=== PATIENT | female | born 1970 | race Caucasian/White ===

== ENCOUNTER 2017-12-06 02:25 | Emergency (ER) | payer OTHER ==
[2017-12-06 02:31] VITALS: RESP 18
[2017-12-06] MEDS ORDERED: ACETAMINOPHEN TAB 500 MG TAB PO STA (02:48)
[2017-12-06] MEDS ORDERED: DIPH,PERTUS(ACELL)TETVAC-LF 0.5 ML VIAL IM ONE (02:48)
[2017-12-06] MEDS ORDERED: LIDOCAINE 1% INJ 10MG/ML (20 ML MDV) SQ ONE (02:48)
--- NOTE | 2017-12-06 02:53 | ED ---
Wound/Laceration HPI - General Source: patient Mode of arrival: ambulatory Limitations: no limitations <Deidre Park - Last Filed: 12/06/17 03:59> <Susan Brennan - Last Filed: 12/06/17 05:11> - General Chief Complaint: Wound/Laceration Stated Complaint: hand lac Time Seen by Provider: 12/06/17 02:41 - History of Present Illness Initial Comments: 47-year-old female patient presents to the emergency department today for evaluation of laceration to the right hand. Patient states that she was at work , going to [place] when she slipped and cut her hand with a hand box coverer. Patient was able to get the bleeding under control. This occurred around 1 AM. She is unsure when her last tetanus vaccine was given. She denies any numbness or tingling to her hand or fingers. Denies any difficulty with range of motion. Denies any other injuries. Patient denies any headache, neck pain, back pain, chest pain, shortness of breath, dizziness, weakness, abdominal pain, nausea, vomiting, or difficulties with bowel movements or urination. (Deidre Park) - Related Data Allergies Allergy/AdvReac Type Severity Reaction Status Date / Time No Known Allergies Allergy Verified 12/06/17 02:31 Review of Systems ROS Other: All systems not noted in ROS Statement are negative. <Deidre Park - Last Filed: 12/06/17 03:59> ROS Other: All systems not noted in ROS Statement are negative. <Susan Brennan - Last Filed: 12/06/17 05:11> ROS Statement: Those systems with pertinent positive or pertinent negative responses have been documented in the HPI. Past Medical History Past Medical History: No Reported History History of Any Multi-Drug Resistant Organisms: None Reported Past Surgical History: No Surgical Hx Reported Past Psychological History: No Psychological Hx Reported Smoking Status: Current every day smoker Past Alcohol Use History: None Reported Past Drug Use History: None Reported <Deidre Park - Last Filed: 12/06/17 03:59> General Exam Limitations: no limitations General appearance: alert, in no apparent distress, other (Physical well- developed, well-nourished adult female patient in no acute distress. Vital signs upon presentation are temperature 97.7F, pulse 92, respirations 18, blood pressure 112/58, pulse ox 99% on room air.) Eye exam: Present: normal appearance, PERRL, EOMI. Absent: scleral icterus, conjunctival injection, periorbital swelling ENT exam: Present: normal exam, normal oropharynx, mucous membranes moist Respiratory exam: Present: normal lung sounds bilaterally. Absent: respiratory distress, wheezes, rales, rhonchi, stridor Cardiovascular Exam: Present: regular rate, normal rhythm, normal heart sounds. Absent: systolic murmur, diastolic murmur, rubs, gallop, clicks Extremities exam: Present: full ROM, normal capillary refill, other (Patient has a 4 cm laceration noted to the webbing between thumb and forefinger. Bleeding controlled. Full range of motion with no pain or limitation. Otherwise skin pink, warm, and dry. Cap refill less than three seconds. Radial pulse 2+ and equal bilaterally. ). Absent: normal inspection, tenderness, pedal edema, joint swelling, calf tenderness Neurological exam: Present: alert, oriented X3, CN II-XII intact Psychiatric exam: Present: normal affect, normal mood Skin exam: Present: warm, dry, intact, normal color. Absent: rash <Deidre Park M - Last Filed: 12/06/17 03:59> Vital Signs 12/06/17 12/06/17 02:29 04:00 Temperature 97.7 F 98.4 F Pulse Rate 92 93 Respiratory 18 18 Rate Blood Pressure 112/58 126/77 O2 Sat by Pulse 99 98 Oximetry Procedures - Laceration Laceration #1 Consent Obtained: verbal consent Indication: laceration Site: hand Size (cm): 4 Description: linear Depth: simple, single layer Anesthetic Used: lidocaine 1% Anesthesia Technique: local infiltration Amount (mls): 7 Pre-repair: irrigated extensively Type of Sutures: nylon Size of Sutures: 5-0 Number of Sutures: 7 Technique: simple, interrupted Patient Tolerated Procedure: well, no complications <Deidre Park - Last Filed: 12/06/17 03:59> Medical Decision Making <Deidre Park - Last Filed: 12/06/17 03:59> <Susan Brennan - Last Filed: 12/06/17 05:11> - Medical Decision Making 47 year-old female patient presented to the emergency department today for evaluation of laceration to the right hand. Physical examination did reveal a 4 cm laceration to the webbing between the thumb and index finger on the right hand. Patient had full range of motion to all fingers. Good strength against resistance. Bleeding under control. Did repair her laceration as documented under procedure note. Patient be discharged home to follow-up with [facility] in 1-2 days. She is educated regarding wound care and signs or symptoms of infection. She is instructed to return in 7 days for suture removal. Return parameters discussed in detail. She verbalizes understanding and agrees with this plan. (Deidre Park) I was available for consultation in the emergency department. The history and physical exam were done by the midlevel provider. I was consulted for this patient's care. I reviewed the case with the midlevel provider and based on their presentation of the patient, I agree with the assessment, medical decision making and plan of care as documented. (Susan Brennan) Disposition Is patient prescribed a controlled substance at d/c from ED?: No Time of Disposition: 03:53 <Deidre Park - Last Filed: 12/06/17 03:59> <Susan Brennan - Last Filed: 12/06/17 05:11> Clinical Impression: Laceration of right hand Disposition: HOME SELF-CARE Condition: Good Instructions: Care For Your Stitches (ED), Laceration (ED) Additional Instructions: Keep wound clean and dry. Wash twice daily with warm water and antibacterial soap. Keep covered while at work. Monitor for signs or symptoms of infection including but not limited to redness, swelling, drainage of pus, fever, or chills. Return for removal of stitches in 7 days. Return here immediately for any other new, worsening, or concerning symptoms. Referrals: Nonstaff,Physician [Primary Care Provider] - 1-2 days
[2017-12-06 04:01] VITALS: BP 126/77; PULSE 93; TEMP 98.4
== END 2017-12-06 04:01 | disposition home or self-care (01) ==
LOC: EC 02:25
DX: S61.411A Laceration without foreign body of right hand, initial encounter (principal); F17.200 Nicotine dependence, unspecified, uncomplicated; Z23 Encounter for immunization; W26.8XXA Contact with other sharp object(s), not elsewhere classified, initial encounter
CPT/HCPCS: 90715; 99282; 12002; 90471; J2001

== ENCOUNTER 2018-05-15 19:50 | Emergency (ER) | payer BC ==
[2018-05-15] MEDS ORDERED: DIPH,PERTUS(ACELL)TETVAC-LF 0.5 ML VIAL IM ONE (19:58)
[2018-05-15] MEDS ORDERED: LIDOCAINE 1% INJ 10MG/ML (20 ML MDV) SQ STA (19:58)
[2018-05-15 19:59] VITALS: RESP 20
--- NOTE | 2018-05-15 20:16 | XR ---
EXAMINATION TYPE: XR forearm LT DATE OF EXAM: 05/15/2018 COMPARISON: NONE HISTORY: Laceration on forearm TECHNIQUE: 2 views FINDINGS: I see no fracture nor dislocation. Elbow joint and wrist joint appear intact. There are ban dages obscure soft tissues of the mid forearm. IMPRESSION: No fracture. No sign of a foreign body.
--- NOTE | 2018-05-15 21:00 | ED ---
General Adult HPI - General Chief complaint: Wound/Laceration Stated complaint: Arm laceration Time Seen by Provider: 05/15/18 19:58 Source: patient, family, RN notes reviewed, old records reviewed Mode of arrival: ambulatory Limitations: no limitations - History of Present Illness Initial comments: 47-year-old female patient with no pertinent past medical history presents ED after sustaining a laceration to the volar aspect of her left forearm. Patient reports that she was cutting carpet for a car with a razor blade. Patient reports that the blade slipped and she suffered a superficial laceration to the volar aspect of her left forearm. Patient denies any other complaints. Patient does not know date of last tetanus. Systemic: Pt denies fatigue, myalgia, fever/chills, rash. Pt denies weakness, night sweats, weight loss. Neuro: Pt denies headache, visual disturbances, syncope or pre-syncope. HEENT: Pt denies ocular discharge or irritation, otalgia, rhinorrhea, pharyngitis or notable lymphadenopathy. Cardiopulmonary: Pt denies chest pain, SOB, heart palpitations, dyspnea on exertion. Abdominal/GI: Pt denies abdominal pain, n/v/d. : Pt denies dysuria, burning w/ urination, frequency/urgency. Denies new onset urinary or bowel incontinence. MSK: Pt denies myalgia, loss of strength or function in extremities. Neuro: Pt denies new onset weakness, paresthesias. - Related Data Allergies Allergy/AdvReac Type Severity Reaction Status Date / Time No Known Allergies Allergy Verified 05/15/18 19:59 Review of Systems ROS Statement: Those systems with pertinent positive or pertinent negative responses have been documented in the HPI. ROS Other: All systems not noted in ROS Statement are negative. Past Medical History Past Medical History: No Reported History History of Any Multi-Drug Resistant Organisms: None Reported Past Surgical History: No Surgical Hx Reported Past Psychological History: No Psychological Hx Reported Smoking Status: Current every day smoker Past Alcohol Use History: None Reported Past Drug Use History: None Reported General Exam - General Exam Comments Initial Comments: Constitutional: NAD, AOX3, Pt has pleasant affect. HEENT: NC/AT, trachea midline, neck supple, no lymphadenopathy. Posterior pharynx non erythematous, without exudates. External ears appear normal, without discharge. Mucous membranes moist. Eyes PERRLA, EOM intact. There is no scleral icterus. No pallor noted. Cardiopulmonary: RRR, no murmurs, rubs or gallops, no JVD noted. Lungs CTAB in anterior and posterior felix. No peripheral edema. Abdominal exam: Abdomen soft and non-distended. Abdomen non-tender to palpation in all 4 quadrants. Bowel sounds active in LLQ. No hepatosplenomegaly. No ecchymosis Neuro: CN II-XII grossly intact. No nuchal rigidity. MSK: 3 cm laceration to left full her forearm. He takes insulin 500 mL normal saline. No tendinous, vascular, osseous involvement. No foreign body. Approximated with 3 simple interrupted sutures. No posterior calf tenderness bilaterally, homans sign negative bilaterally. Posterior tibialis and radial pulse +2 bilaterally. Sensation intact in upper and lower extremities. Full active ROM in upper and lower extremities, 5/5 stregnth. Limitations: no limitations Course Vital Signs 05/15/18 19:56 Temperature 97.7 F Pulse Rate 77 Respiratory 20 Rate Blood Pressure 127/71 O2 Sat by Pulse 97 Oximetry Procedures - Laceration Laceration #1 Consent Obtained: verbal consent Indication: laceration Site: upper extremity (L volar forearm) Size (cm): 3 Description: linear Depth: simple, single layer Anesthetic Used: lidocaine 1% Anesthesia Technique: local infiltration Amount (mls): 4 Pre-repair: wound explored, irrigated extensively (500cc NS ), deep structures intact Size of Sutures: 5-0 Number of Sutures: 3 Technique: simple, interrupted Patient Tolerated Procedure: well, no complications Medical Decision Making - Medical Decision Making 47-year-old female patient with no pertinent past medical history presents ED after sustaining a laceration to the volar aspect of her left forearm. Patient reports that she was cutting carpet for a car with a razor blade. Patient reports that the blade slipped and she suffered a superficial laceration to the volar aspect of her left forearm. Patient denies any other complaints. Patient does not know date of last tetanus. Patient will signs stable, afebrile. Physical exam displayed: 3 cm laceration to left full her forearm. He takes insulin 500 mL normal saline. No tendinous, vascular, osseous involvement. No foreign body. Approximated with 3 simple interrupted sutures. Plain film of left forearm done display any acute process, foreign body. Patient tetanus updated. Patient return to ER in 7-10 days for suture removal. Patient follow up with primary care provider in 1-2 days. Patient will monitor for signs symptoms of infection, patient verbalized understanding. Case discussed with Dr. Jerez. Disposition Clinical Impression: Laceration Disposition: HOME SELF-CARE Condition: Stable Instructions (If sedation given, give patient instructions): Care For Your Stitches (ED), Laceration (ED) Additional Instructions: Patient to adhere to previously discussed treatment plan and will take medication(s) as directed. Patient to follow up with PCP in 1-2 days. Patient to return to ED if symptoms do not improve. Please return for suture removal: Hand: 7-10 days Face: 5 days Chest/abdomen: 12-14 days Extremities: 7-10 days Scalp: 7 days Eyebrow: 5-7 days Foot/sole: 12-14 days Please monitor for signs and symptoms of infection including: redness, warmth, drainage, discharge. Please return to ED if these signs or symptoms occur, new signs or symptoms develop or if condition worsens in anyway. Is patient prescribed a controlled substance at d/c from ED?: No Referrals: None,Stated [Primary Care Provider] - 1-2 days [facility] - 1-2 days
[2018-05-15 21:22] VITALS: BP 122/72; PULSE 18; TEMP 98
== END 2018-05-15 21:05 | disposition home or self-care (01) ==
LOC: EC 19:50
DX: S01.81XA Laceration without foreign body of other part of head, initial encounter (principal); F17.200 Nicotine dependence, unspecified, uncomplicated; W26.0XXA Contact with knife, initial encounter; Y92.009 Unspecified place in unspecified non-institutional (private) residence as the place of occurrence of the external cause; Z53.29 Procedure and treatment not carried out because of patient's decision for other reasons
CPT/HCPCS: 73090; 99283; 12002; J2001